=== PATIENT | female | born 1940 | race Caucasian/White ===

== ENCOUNTER → 2017-10-18 08:00 | Outpatient (CLI) | payer MEDICARE | END | disposition home or self-care (01) | LOC: D.MAMMO 08:00 | DX: Z12.31 Encounter for screening mammogram for malignant neoplasm of breast (principal) ==

== ENCOUNTER → 2018-03-16 12:46 | Outpatient (CLI) | payer MEDICARE | END | disposition home or self-care (01) | LOC: D.CT 12:46 | DX: C91.90 Lymphoid leukemia, unspecified not having achieved remission (principal) ==

== ENCOUNTER → 2018-03-24 10:05 | Outpatient (CLI) | payer MEDICARE | END | disposition home or self-care (01) | LOC: D.CT 10:05 | DX: C91.90 Lymphoid leukemia, unspecified not having achieved remission (principal) ==

== ENCOUNTER 2018-12-27 09:00 | Outpatient (CLI) | payer MEDICARE | END 2018-12-27 09:30 | disposition home or self-care (01) | LOC: D.MAMMO 09:00 | PROVIDERS: ATTEND Nurse Practitioner Family | DX: Z12.31 Encounter for screening mammogram for malignant neoplasm of breast (principal) ==